=== PATIENT | male | born 1990 | race Caucasian/White ===

== ENCOUNTER 2024-04-01 12:45 | Emergency (ER) | payer BC ==
[~2024-04-01] VITALS: Ht 172.7 cm; Wt 90.4 kg
[2024-04-01] MEDS ORDERED: ISOVUE-370 76% 100ML VIAL As Ordered ONE (13:47)
[2024-04-01] MEDS: NS 500 ML IV ONE (13:50)
[2024-04-01] MEDS: NITROGLYCERIN 0.4MG SUBL TABLET SL PRN (13:50)
[2024-04-01] MEDS: ASPIRIN 81MG CHEW TABLET PO ONE (13:51)
[2024-04-01 13:52] LABS: BASO % 0.2 % (0.0-1.0); EOS % 0.3 % (0.0-3.0); HEMATOCRIT 44.5 % (42.0-52.0); HEMOGLOBIN 14.9 g/dl (13.5-17.5); LYMPH # 1.1 10^3/uL (1.5-5.0); LYMPH % 8.9 % (24.0-44.0); MEAN CORPUSCULAR HEMOGLOBIN 28.7 pg (27.0-33.0); MEAN CORPUSCULAR HGB CONC 33.5 g/dl (32.0-36.5); MEAN CORPUSCULAR VOLUME 85.7 fl (80.0-96.0); MONO # 0.5 10^3/uL (0.0-0.8); MONO % 3.6 % (2.0-8.0); NEUTROPHILS # 10.9 10^3/uL (1.5-8.5); NEUTROPHILS % 86.6 % (36.0-66.0); RED BLOOD COUNT 5.19 10^6/uL (4.30-6.10); WHITE BLOOD COUNT 12.6 10^3/uL (4.0-10.0)
[2024-04-01 14:09] LABS: CK-MB VALUE MASS 3.1 NG/ML (<3.6); LIPASE 36 U/L (12-53)
[2024-04-01 14:11] LABS: ALBUMIN 4.3 G/DL (3.2-5.2); ALKALINE PHOSPHATASE 79 U/L (46-116); ALT/SGPT 23 U/L (7.0-40); AST/SGOT 22 U/L (<34); BILIRUBIN,DIRECT < 0.1 MG/DL (<0.4); BILIRUBIN,TOTAL 0.4 MG/DL (0.3-1.2); BLOOD UREA NITROGEN 12 MG/DL (9-23); CALCIUM LEVEL 8.9 MG/DL (8.5-10.1); CARBON DIOXIDE LEVEL 28 MMOL/L (20-31); CHLORIDE LEVEL 104 MMOL/L (98-107); CREATININE FOR GFR 0.82 MG/DL (0.70-1.30); GLOMERULAR FILTRATION RATE > 60.0 (>60); GLUCOSE, FASTING 158 MG/DL (60-100); POTASSIUM SERUM 4.4 MMOL/L (3.5-5.1); SODIUM LEVEL 138 MMOL/L (136-145); TOTAL PROTEIN 7.6 G/DL (5.7-8.2)
[2024-04-01 14:13] LABS: FREE T4 1.11 NG/DL (0.89-1.76); THYROID STIMULATING HORMONE 1.421 uIU/ML (0.55-4.78)
[2024-04-01 14:21] LABS: CPK CREATINE PHOSPHOKINASE 142 U/L (46-171); MB/CK RELATIVE INDEX 2.18 (< OR =4)
[2024-04-01] MEDS: fentaNYL 100 MCG/2 ML INJECTION IV PRN (14:22)
[2024-04-01 14:23] LABS: PLATELET COUNT, AUTOMATED 223 10^3/uL (150-450)
[2024-04-01 14:46] LABS: CK-MB VALUE MASS 3.5 NG/ML (<3.6)
[2024-04-01] MEDS: NS 1,000 ML IV ONE (14:49)
[2024-04-01 14:50] LABS: MB/CK RELATIVE INDEX 2.27 (< OR =4)
[2024-04-01 15:37] LABS: INR 1.05; PARTIAL THROMBOPLASTIN TIME 23.1 SECONDS (24.8-34.2); PROTHROMBIN TIME 13.4 SECONDS (12.5-14.5)
[2024-04-01] MEDS: ACETAMINOPHEN 325 MG TAB PO ONE (15:38)
[2024-04-01 15:39] VITALS: BP 145/76
[2024-04-01] MEDS: NITROGLYCERIN 2% OINT 1 GM *U/D* PKT TOP ONE (15:39)
[2024-04-01] MEDS: HEPARIN DRIP 25,000 UNITS in IV 1 EA IV SCH (15:50)
[2024-04-01] MEDS: HEPARIN SOD (PORCINE) 5000UNITS/ML 1ML VIAL/SYRINGE IV ONE (15:50)
[2024-04-01 16:12] LABS: CK-MB VALUE MASS 10.5 NG/ML (<3.6); MB/CK RELATIVE INDEX 5.44 (< OR =4)
[2024-04-01 16:37] VITALS: BP 134/88; TEMP 96.8; O2SAT 99
== END 2024-04-01 16:39 | disposition short-term general hospital (02) ==
LOC: M ED 12:45
DX: I21.4 Non-ST elevation (NSTEMI) myocardial infarction (principal); Z88.2 Allergy status to sulfonamides
CPT/HCPCS: 71045; 71275; 80047; 80048; 80076; 82550; 82553; 83690; 84439; 84443; 84484; 85025; 85610; 85730; 87486; 87581; 87633; 87798; 93005; 93041; 94760; 96361; 96365; 96375; 96376; 99285; J3010; Q9967